=== PATIENT | female | born 1985 | race Caucasian/White ===

== ENCOUNTER 2021-08-18 17:36 | Emergency (ER) | payer OTHER, SELFPAY ==
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
[2021-08-18 17:40] VITALS: BP 137/70; PULSE 88; RESP 20; TEMP 35.7; O2SAT 100
[2021-08-18 19:05] VITALS: BP 122/73; PULSE 82; RESP 18; TEMP 36.7; O2SAT 100
--- NOTE | 2021-08-18 19:20 | ECG_ITS ---
Measurements Intervals [place] Rate: 79 P: 69 CT: 179 QRS: 52 QRSD: 108 T: 34 QT: 389 QTc: 447 Interpretive Statements SINUS RHYTHM POSSIBLE LEFT ATRIAL ENLARGEMENT INCOMPLETE RIGHT BUNDLE BRANCH BLOCK BASELINE ARTIFACT- I, III, AVF, V1, V3-V5 BORDERLINE ECG Electronically Signed On 08-19-2021 7:44:16 SEAMING INSPECTOR by Leonard Martinez D.O.
--- NOTE | 2021-08-18 19:26 | PC.NURSE ---
Patient taken to radiology via stretcher.
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
[2021-08-18] MEDS: MORPHINE SULFATE (*CRX) 4 MG/ML INJ IV PUSH (19:42)
[2021-08-18] MEDS: ONDANSETRON INJ 4 MG/2 ML VIAL IV PUSH (19:42)
[2021-08-18 20:27] LABS: Basophils Absolute Auto 0.1 K/mm3 (0.0-0.1); Basophils Percent Auto 0.4 % (0.2-1.2); Eosinophils Percent Auto 0.1 % (0-4.4); Hematocrit 40.8 % (37.0-47.0); Hemoglobin 13.2 g/dL (12.0-15.0); Immature Granulocyte Absolute 0.11 K/mm3 (0.00-0.031); Immature Granulocyte Percent A 0.5 % (0-0.5); Lymphocytes Absolute Auto 1.38 K/mm3 (0.9-3.2); Lymphocytes Percent Auto 6.5 % (18.3-44.2); Mean Corpuscular HGB Conc 32.4 g/dl (32-36); Mean Corpuscular Hemoglobin 27.9 pg (26-34); Mean Corpuscular Volume 86.3 fl (80-100); Mean Platelet Volume 10.2 fl (7.4-10.4); Monocytes Absolute Auto 1.2 K/mm3 (0.1-0.6); Monocytes Percent Auto 5.5 % (2.6-8.5); Neutrophils Absolute Auto 18.6 K/mm3 (1.3-6.7); Platelet Count Result 309 k/mm3 (150-375); Red Blood Count 4.73 M/mm3 (4.2-5.4); Red Cell Distribution Width 14.1 % (11.5-14.5); White Blood Count 21.4 K/mm3 (4.5-10.0)
[2021-08-18 20:35] LABS: Alanine Aminotransferase 21 U/L (4-35); Albumin Level 4.4 g/dL (3.5-5.1); Alkaline Phosphatase 90 U/L (38-126); Anion Gap 11 mmol/L (8-16); Aspartate Amino Transferase 25 U/L (14-36); Bilirubin,Total 0.3 mg/dL (0.2-1.3); Blood Urea Nitrogen 17 mg/dL (7-17); Calcium 9.4 mg/dL (8.4-10.2); Carbon Dioxide 22 mmol/L (22-30); Chloride 107 mmol/L (98-107); Estimated CRCL calculation 113 ml/min; Estimated Glomerular Filt Rate > 60; Glucose 93 mg/dL (65-110); Potassium 3.6 mmol/L (3.4-5.0); Sodium 140 mmol/L (137-145)
[2021-08-18 20:37] LABS: Prothrombin Time 13.1 Seconds (11.1-14.7)
[2021-08-18 20:38] LABS: Partial Thromboplastin Time 24.1 SECONDS (22.3-36.8)
[2021-08-18] MEDS: IBUPROFEN 400 MG TABLET 800 MG PO (22:27)
== END 2021-08-18 22:36 | disposition home or self-care (01) ==
PROVIDERS: Emergency Provider General Practice
DX: S20.212A Contusion of left front wall of thorax, initial encounter (principal); S40.012A Contusion of left shoulder, initial encounter; S30.810A Abrasion of lower back and pelvis, initial encounter; V43.52XA Car driver injured in collision with other type car in traffic accident, initial encounter; I45.10 Unspecified right bundle-branch block; R94.31 Abnormal electrocardiogram [ECG] [EKG]
CPT/HCPCS: 36415; 71045; 71260; 72126; 73030; 74177; 80053; 81025; 85025; 85610; 85730; 93005; 96374; 96375; 99284; A9270; J2270; J2405; Q9967

== ENCOUNTER 2024-05-07 19:39 | Emergency (ER) | payer OTHER, SELFPAY ==
[2024-05-07 20:00] VITALS: BP 152/112; PULSE 81; RESP 15; TEMP 36.3; O2SAT 99
--- NOTE | 2024-05-07 20:01 | ED.URI ---
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 She is concerned about strep, she did take a COVID test prior to arrival. She states that this was negative. She has been taking Tylenol and ibuprofen with good results. Her symptoms have been present for couple of days, she does affirm some fatigue. Denies any fever, chills, sweats. Related Data Allergies Allergy/AdvReac Type Severity Reaction Status Date / Time No Known Allergies Allergy Verified 05/07/24 19:59 Review of Systems Review of Systems: All systems reviewed & are unremarkable except as noted in HPI and below Constitutional: Constitutional: Reports no additional constitutional complaints and Reports lethargy ENT: Reports system reviewed and no additional complaints, except as documented, Reports nasal congestion, Reports nasal discharge and Reports sore throat Cardiovascular: Cardiovascular: Reports no additional cardiovascular complaints Respiratory: Respiratory: Reports no additional respiratory complaints Gastrointestinal: Gastrointestinal: Reports no additional gastrointestinal complaints [facility] Past Medical History Medical History (Updated 05/08/24 @ 00:00 by Olya Haro) Patient denies medical problems Surgical History Surgical History (Updated 08/18/21 @ 22:16 by Frances Juarez MD) No pertinent past surgical history Social History Social History (Updated 08/18/21 @ 22:15 by Frances Juarez MD) Smoking status: Never smoker Comments At the time of my signature, I reviewed and agree with the nursing past medical, surgical, social, and family history. There is no relevant family history pertinent to the patient complaint. Exam Const: General: cooperative, no acute distress, alert and awake Orientation/consciousness: oriented to person, oriented to place and oriented to time HENMT: Head: normal to inspection Ears: TM's normal bilaterally Face/Nose/Sinus: Nasal discharge present clear bilateral Mouth: Yes moist mucous membranes Throat: posterior oropharynx abnormal erythema Resp: Effort & Inspection: normal respiratory effort and able to speak in complete sentences Auscultation: clear to auscultation bilaterally, no crackles, no rales, no rhonchi and no wheezes Cardio: Palpation: normal PMI Rate: regular rate Rhythm: regular rhythm Heart sounds: S1 normal heart sound present and S2 normal heart sound present Neuro: General: oriented to person, oriented to place and oriented to time Cranial nerves: Yes CN's II-XII intact bilaterally Psych: Appearance: grossly normal Thought process: Normal thought process present Insight: Good insight present (Psych) Judgement: Good judgement present (Psych) Course Course Level of Care: Express Care Visit Vital Signs Vital signs: Vital Signs Temperature 97.3 F L 05/07/24 20:00 Pulse Rate 81 05/07/24 20:00 Respiratory Rate 15 05/07/24 20:00 Blood Pressure 152/112 H 05/07/24 20:00 Pulse Oximetry 99 05/07/24 20:00 Oxygen Delivery Room Air 05/07/24 20:00 Temperature 97.3 F L 05/07/24 20:00 Pulse Rate 81 05/07/24 20:00 Respiratory Rate 15 05/07/24 20:00 Blood Pressure 152/112 H 05/07/24 20:00 Pulse Oximetry 99 05/07/24 20:00 Oxygen Delivery Room Air 05/07/24 20:00 Reviewed MDM - URI/Sore Throat MDM Narrative Medical decision making narrative: Discussed elevated blood pressure with patient. She agrees to follow-up primary care provider. Symptoms today likely secondary to viral URI. Negative COVID, negative strep. Treat symptomatically. Plenty of rest and fluids. Fo
[2024-05-07 20:22] LABS: EDSTREPNEGPOS1 Negative
== END 2024-05-07 20:38 | disposition home or self-care (01) ==
PROVIDERS: Emergency Provider Nurse Practitioner Family
DX: J06.9 Acute upper respiratory infection, unspecified (principal)
CPT/HCPCS: 87081; 87880; 99213; G0463